=== PATIENT | male | born 1935 | race Caucasian/White ===

== ENCOUNTER → 2017-04-30 | Outpatient (CLI) | payer MEDICARE, MEDICAID ==
[~2017-04-30] MED LIST: ALB18R INH; ASPI-816 PO; ATOR10TA24 PO; BLOO-1061 MC; BLOO-1318 MC; BLOO-1337 MC; BUPR-136 PO; FLU IM; GUAI120L3 PO; LANC-1149 MC; LISI-362 PO; LISI20TA29 PO; LOSA50TA72 PO; METF-410 PO; OMEP-125 PO; OXYB5TAB80 PO; PNEU0.5D3 IM; SPIR1TAB26 PO; TAMS0.4C70 PO; VARE1TAB3 PO
== END ==
LOC: LAB 15:15
PROVIDERS: ATTEND Internal Medicine Endocrinology, Diabetes & Metabolism
DX: R94.6 Abnormal results of thyroid function studies (principal)
CPT/HCPCS: 36415; 84439; 84443; 84481

== ENCOUNTER → 2017-05-17 | Outpatient (CLI) | payer MEDICARE, MEDICAID ==
[2017-05-17 11:47] LABS: PLATELET COUNT, AUTOMATED 124 K/uL (150-450)
== END ==
LOC: LAB 11:21
PROVIDERS: ATTEND Nurse Practitioner Primary Care
DX: I10 Essential (primary) hypertension (principal); E78.00 Pure hypercholesterolemia, unspecified; E11.9 Type 2 diabetes mellitus without complications
CPT/HCPCS: 36415; 82040; 82247; 82310; 82374; 82435; 82465; 82565; 82947; 83036; 83718; 84075; 84132; 84155; 84295; 84450; 84460; 84478; 84520; 85025

== ENCOUNTER → 2017-06-16 | Outpatient (CLI) | payer MEDICARE, MEDICAID ==
[~2017-06-16] MED LIST changes: +ALBU8.5H IH; +UMEC1DIS INH
--- NOTE | 2017-06-16 11:41 | RADIOLOGY IMAGING REPORT ---
FACILITY: [facility] [place] PATIENT NAME: Sloan Odom : 1935 MR: [id number] V: [id number] EXAM DATE: ORDERING PHYSICIAN: JUSTIN MYERS TECHNOLOGIST: Location: [facility] [place] Patient: Sloan Odom : 1935 Visit/Account:[id number] Date of Sevice: 06/16/2017 SINGLE ORGAN HISTORY: Incomplete bladder emptying COMPARISON: None. FINDINGS: Bladder wall appears very irregular and trabeculated. Bilateral ureteral jets are present. Prostate gland appears enlarged and impinges upon the floor the urinary bladder and measures 6.5 x 6.2 x 7.4 cm.. The urinary bladder volume measured 165 mL. The post void residual was 96 mL. IMPRESSION: Bladder wall appears irregular and trabeculated Enlarged prostate gland Post void bladder residual 96 mL Report Dictated By: Barby Cross MD at 06/16/2017 11:36 AM Report E-Signed By: Barby Cross MD at 06/16/2017 11:38 AM WSN:[email or web address]
== END ==
LOC: RAD 02:28
DX: N40.1 Benign prostatic hyperplasia with lower urinary tract symptoms (principal); R39.14 Feeling of incomplete bladder emptying
CPT/HCPCS: 76705

== ENCOUNTER → 2017-06-22 | Outpatient (CLI) | payer MEDICARE | LOC: LAB 13:11 | DX: R97.20 Elevated prostate specific antigen [PSA] (principal) | CPT/HCPCS: 36415; 82310; 82374; 82435; 82565; 82947; 84132; 84153; 84295; 84520; 85027 ==

== ENCOUNTER 2017-06-28 19:35 | Emergency (ER) | payer MEDICAID, MEDICARE ==
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
--- NOTE | 2017-06-28 20:49 | RADIOLOGY IMAGING REPORT ---
FACILITY: [facility] PATIENT NAME: Sloan Odom : 1935 MR: [id number] V: [id number] EXAM DATE: ORDERING PHYSICIAN: SHERLY BLOOM TECHNOLOGIST: Location: [facility] Patient: Sloan Odom : 1935 Visit/Account:[id number] Date of Sevice: 06/28/2017 EXAMINATION: CT Head without intravenous contrast HISTORY: Headache. Confusion. TECHNIQUE: Axial images were obtained from the skull base to the vertex without intravenous contrast . Sagittal and coronal reformatted images are also submitted. One of the following dose optimization techniques was utilized in the performance of this exam: Autom ated exposure control; adjustment of the mA and/or kV according to the patient's size; or use of an i terative reconstruction technique. Specific details can be referenced in the facility's radiology C T exam operational policy. COMPARISON: None. FINDINGS: Brain volume: Mild generalized volume loss. Ventricles: Negative. Acute ischemic changes: None. Hemorrhage: None. Masses / edema: None. Cagle-white: Negative. White matter: Moderate to severe chronic microvascular ischemic changes. Vessels: Negative. Extra-axial: Negative. Calvarium / skull base: Negative. Visualized sinuses / orbits: Mild mucosal thickening in the paranasal sinuses. Bilateral TMJ arthrit is. IMPRESSION: 1. No acute intracranial abnormality. 2. Mild brain parenchymal volume loss. 3. Moderate to severe chronic white matter changes, nonspecific but most likely representing chronic microvascular ischemia. 4. Mild mucosal thickening in the paranasal sinuses. Report Dictated By: Chao Batista MD at 06/28/2017 8:36 PM Report E-Signed By: Chao Batista MD at 06/28/2017 8:44 PM WSN:[id number]
--- NOTE | 2017-06-28 20:50 | RADIOLOGY IMAGING REPORT ---
FACILITY: [facility] [place] PATIENT NAME: Sloan Odom : 1935 MR: [id number] V: [id number] EXAM DATE: ORDERING PHYSICIAN: SHERLY BLOOM TECHNOLOGIST: Location: [facility] Patient: Sloan Odom : 1935 Visit/Account:[id number] Date of Sevice: 06/28/2017 CHEST PA AND LAT HISTORY: Confusion. Dizziness. COMPARISON: 08/02/2014. FINDINGS: PA and lateral views of the chest are submitted. Lines/tubes: None. Lungs/pleura: Negative. Heart: Negative. Mediastinum: Negative. Bony structures/body wall: Degenerative changes in the spine. No acute osseous findings. IMPRESSION: No acute cardiopulmonary process. Report Dictated By: Chao Batista MD at 06/28/2017 8:46 PM Report E-Signed By: Chao Batista MD at 06/28/2017 8:47 PM WSN:[id number]
[2017-06-28 20:55] LABS: PLATELET COUNT, AUTOMATED 120 K/uL (150-450)
[2017-06-28] MEDS ORDERED: GADOBENATE 529MG/1ML 15ML VIAL IVP ONE (21:07)
--- NOTE | 2017-06-28 21:53 | RADIOLOGY IMAGING REPORT ---
FACILITY: [facility] [place] PATIENT NAME: Sloan Odom : 1935 MR: [id number] V: [id number] EXAM DATE: ORDERING PHYSICIAN: SHERLY BLOOM TECHNOLOGIST: Location: [facility] Patient: Sloan Odom : 1935 Visit/Account:[id number] Date of Sevice: 06/28/2017 EXAMINATION: MRI Brain without intravenous contrast MRI Brain with intravenous contrast HISTORY: Confusion. Left arm weakness and numbness. COMPARISON: Noncontrast head CT from same date. [facility] protocol MRI dated 08/27/2016. TECHNIQUE: Multi-planar, multi-sequence brain MRI was performed before and after IV gadolinium. CONTRAST: 15 mL of IV MultiHance FINDINGS: Brain volume: Mild generalized volume loss. Sagittal midline structures: Negative. Ventricles: Negative. Acute ischemic changes: None. Hemorrhage: None. Masses / edema: None. Enhancement: Negative. Cagle-white: Negative. White matter: Patchy and confluent T2/FLAIR hyperintensities in the deep white matter bilaterally. Vessels: Negative. Extra-axial: Negative. Calvarium / scalp: Negative. Skull base: Negative. Visualized sinuses / orbits: Mild mucosal thickening in the paranasal sinuses. Visualized upper neck: Negative. IMPRESSION: 1. No acute intracranial abnormality or mass. 2. Moderate to severe chronic white matter changes, nonspecific but most likely representing chronic microvascular ischemia. 3. Mild brain parenchymal volume loss. 4. Mild mucosal thickening in the paranasal sinuses. Report Dictated By: Chao Batista MD at 06/28/2017 9:42 PM Report E-Signed By: Chao Batista MD at 06/28/2017 9:48 PM WSN:[id number]
[2017-06-28 22:00] VITALS: BP 177/105
--- NOTE | 2017-06-29 08:31 | EKG ---
FACILITY: [facility] [place] PATIENT NAME: MIKE CLARK : [id number] MR: [id number] V: [id number] EXAM DATE: ORDERING PHYSICIAN: SHERLY BLOOM TECHNOLOGIST: THERESA Test Reason : AMS Blood Pressure : / mmHG Vent. Rate : 076 BPM Atrial Rate : 076 BPM P-R Int : 140 ms QRS Dur : 090 ms QT Int : 406 ms P-R-T Axes : 059 025 044 degrees QTc Int : 456 ms Normal sinus rhythm Query left atrial enlargement No previous ECGs available Confirmed by ARTUR HERNANDEZ ([id number]) on 06/29/2017 10:20:26 AM Referred By: Confirmed By:ARTUR HERNANDEZ
== END 2017-06-28 23:23 | disposition home or self-care (01) ==
LOC: ER 19:54
DX: R41.0 Disorientation, unspecified (principal); H53.8 Other visual disturbances; R09.02 Hypoxemia
CPT/HCPCS: 70450; 70553; 71046; 81001; 85025; 86140; 93005; 99284; A9577; 82040; 82247; 82310; 82374; 82435; 82565; 82947; 84075; 84132; 84155; 84295; 84450; 84460; 84520

== ENCOUNTER → 2017-07-15 | Outpatient (CLI) | payer MEDICARE, MEDICAID ==
[~2017-07-15] MED LIST changes: +LOSA100T67 PO
[2017-07-15 16:17] LABS: PLATELET COUNT, AUTOMATED 133 K/uL (150-450)
--- NOTE | 2017-07-15 17:28 | RADIOLOGY IMAGING REPORT ---
[facility] PATIENT NAME: Sloan Odom : 1935 MR: [id number] V: [id number] EXAM DATE: ORDERING PHYSICIAN: LORA REAL TECHNOLOGIST: Location: [facility] [place] Patient: Sloan Odom : 1935 Visit/Account:[id number] Date of Sevice: 07/15/2017 CAROTID HISTORY: balance problem, microischemic changes COMPARISON: None. FINDINGS: Grayscale, duplex and color Doppler interrogation of the extracranial carotid and vertebral arteries was performed bilateral. On the right, peak systolic velocities within the common and internal carotid arteries are 98 and 76 cm/sec respectively. There is a small amount of plaque at the right carotid bulb extending into the proximal right internal carotid artery. Antegrade flow within the common, internal and external [place] tid arteries as well as vertebral artery. ICA/CCA ratio 1. On the left, peak systolic velocities within the common and internal carotid arteries are 94 and 83 c m/sec respectively. There is a small amount of plaque at the left carotid bulb extending into the pr oximal left internal carotid artery. Antegrade flow within the common, internal and external carotid arteries as well as vertebral artery. ICA/CCA ratio 1 . Incidentally noted bilateral thyroid nodules. These are not completely evaluated although the pat ient did receive a thyroid ultrasound October 23, 2016 which did discuss bilateral nodules IMPRESSION: Small amount of plaque at the carotid bulbs extending into the internal carotid arteries bilaterally although no hemodynamically significant lesions identified by velocity criteria Incidental bilateral thyroid nodules Velocity criteria are extrapolated from diameter data as defined by the Society of Radiologists in Ul trasound Consensus Conference Radiology 2003; 229;340-346 Report Dictated By: Barby Cross MD at 07/15/2017 5:20 PM Report E-Signed By: Barby Cross MD at 07/15/2017 5:23 PM WSN:[email or web address]
== END ==
LOC: LAB 15:55
PROVIDERS: ATTEND Nurse Practitioner Family
DX: R41.0 Disorientation, unspecified (principal); H53.9 Unspecified visual disturbance; R26.89 Other abnormalities of gait and mobility
CPT/HCPCS: 36415; 82040; 82247; 82310; 82374; 82435; 82565; 82668; 82947; 84075; 84132; 84155; 84295; 84450; 84460; 84520; 85025; 85651; 86140; 93880

== ENCOUNTER → 2017-08-09 | Outpatient (CLI) | payer MEDICARE, MEDICAID ==
[~2017-08-09] MED LIST changes: -ASPI-816 PO; +ASPI-870 PO; +ESCI5TAB3 PO
== END ==
LOC: RESP 06:41
PROVIDERS: ATTEND Family Medicine
DX: J98.4 Other disorders of lung (principal)
CPT/HCPCS: 94010

== ENCOUNTER → 2017-09-06 | Outpatient (CLI) | payer MEDICARE, MEDICAID ==
[~2017-09-06] MED LIST changes: -METF-410 PO; +METF-411 PO
[2017-09-06 16:56] LABS: PLATELET COUNT, AUTOMATED 153 K/uL (150-450)
== END ==
LOC: LAB 16:38
PROVIDERS: ATTEND Family Medicine
DX: E53.8 Deficiency of other specified B group vitamins (principal); E55.9 Vitamin D deficiency, unspecified; I10 Essential (primary) hypertension
CPT/HCPCS: 36415; 82040; 82247; 82306; 82310; 82374; 82435; 82565; 82607; 82947; 84075; 84132; 84155; 84295; 84450; 84460; 84520; 85025

== ENCOUNTER → 2017-09-14 | Outpatient (CLI) | payer MEDICARE ==
--- NOTE | 2017-09-14 15:59 | RADIOLOGY IMAGING REPORT ---
FACILITY: [facility] [place] PATIENT NAME: Sloan Odom : 1935 MR: [id number] V: [id number] EXAM DATE: ORDERING PHYSICIAN: PAUL BEJARANO TECHNOLOGIST: Location: [facility] [place] Patient: Sloan Odom : 1935 Visit/Account:[id number] Date of Sevice: 09/14/2017 Exam type: GROIN ULTRASOUND History: Right inguinal hernia Comparison: None. Findings: Multiple sonographic images of the right inguinal region were submitted performed both with and witho ut Valsalva maneuver. There did appear to be a small loop of bowel within the right inguinal canal l ikely related to a hernia IMPRESSION: 1. There appear to be a small loop of bowel within the right inguinal canal likely related to a emily ia. Report Dictated By: Barby Cross MD at 09/14/2017 3:54 PM Report E-Signed By: Barby Cross MD at 09/14/2017 3:56 PM WSN:[email or web address]
== END ==
LOC: US 02:15
PROVIDERS: ATTEND Family Medicine
DX: K40.30 Unilateral inguinal hernia, with obstruction, without gangrene, not specified as recurrent (principal)
CPT/HCPCS: 76705

== ENCOUNTER → 2017-11-01 | Outpatient (CLI) | payer MEDICARE, MEDICAID ==
[~2017-11-01] MED LIST changes: +OXYGENHOME INH
== END ==
LOC: LAB 16:34
PROVIDERS: ATTEND Family Medicine
DX: E05.90 Thyrotoxicosis, unspecified without thyrotoxic crisis or storm (principal)
CPT/HCPCS: 36415; 84439; 84443; 84481

== ENCOUNTER 2017-11-12 15:10 | Outpatient (RCR) | payer MEDICARE, MEDICAID ==
--- NOTE | 2017-09-15 13:09 | PT INITIAL EVALUATION ---
MEDICAL DIAGNOSIS: Balance Disorder TREATMENT DIAGNOSIS: Abnormality of Gait, Balance DATE OF ONSET: 09/14/17 SUBJECTIVE: Sloan is a 82 year-old male presenting to physical therapy following a prolonged history of decreased balance with recent increase. Pt reports that he has been having more troubles walking lately and last week fell three times. Pt denies any injury or head impact with these falls, but would like to be less "wobbly". Pt reports problems standing in the shower as well as ambulating stairs. Additionally, pt reports R anterior hip pain that started recently. Pt has a history of inguinal hernia in this location and recently had it US but has not received results. Pt mentions that it hurts more with prolonged standing and walking . REHAB PROBLEM LIST: Decreased Strength Decreased Endurance Decreased Balance Decreased Function Decreased ADL's Decreased Mobility Decreased Gait PREVIOUS MEDICAL HISTORY: See EMR OBJECTIVE: ROM: UE and LE ROM WFL Strength: LE MMT: Hip: flexion: B 4-/5, Ext: B 3+/5, Abd: B 3+/5, Add: B 4-/5. Knee: Ext: B 4-/5, flexion: B 4/5. Ankle: DF: L 4+/5, R 4-/5, PF: L 3+/5, R 4/ 5. Pt has no pain with resisted hip movement. Gait: Pt ambulates with decreased foot clearance B and occasional shuffling. Functional Gait Assessment (FGA): Balance: 4 Stage Balance Test: Tandem: R 11 sec, L 30 sec, SLS: B 2 sec. Other Objective Findings: HR: 83, O2 Sat: 93 (Pt reports that he is supposed to be on 2 L of oxygen but doesn't wear it typically, BP: 165/90 (Pt reports that his BP is typically high and is being managed with medications) ASSESSMENT: Pt shows signs and symptoms consistent with abnormality of gait and decreased balance as outlined by the impairments listed above. Physical therapy is indicated for this patient to improve functional mobility and ability to perform ADL's as well as decrease fall risk. Pt's hip pain was not assessed at this time secondary to likely diagnosis of inguinal hernia return, if pain persists it will be later assessed following imaging results. Short Term Goals In 3 weeks pt will increase 4 Stage Balance to SLS B >15 seconds for improved static stance with ADLs such as showering or cooking. In 6 weeks pt will increase strength as tested by MMT to >4/5 in all major muscle groups for increased stability with ADLs. In 6 weeks pt will improve FGA score to >21 for improved function and safety with mobility and performing ADL's. Patient's Goals Improve balance and stability, decrease fall risk. PLAN: Patient to be seen for Strengthening/condition Ice/Heat Range of Motion Spinal Stabilization Ultrasound Stretching Iontophoresis Neuromuscular Re-ed Closed Chain Program Electrical Stim Posture/Body mechanics Gait Trg/Balance Trg Biofeedback Home Exercise Program Mech./Manual Traction Therapeutic Activities Pelvic Floor 2x/Week for 6 Weeks If you have any questions, comments, or concerns about this report or plan, please contact me at . Thank you, Carolynn Landrum, PT, DPT, CLT MTDD
--- NOTE | 2017-10-01 17:08 | SPEECH INITIAL EVALUATION ---
INITIAL SPEECH THERAPY EVALUATION REPORT Cognitive Communication Assessment Patient Name: Sloan Odom Date of Evaluation: 10/01/2017 Patient : 1935 Clinician: Renata Lauren M.S., [facility] DEVELOPER JAV[employer] HTML CSS Martha Martinez B.A., [facility] Treatment Dx: Mild cognitive-linguistic deficits BACKGROUND The patient is an 82 year old male experiencing articulation deficits. The patient reports mis-articulation of words during conversational speech and indicated some difficulty with word finding. The Pt reported completing most IADLs (laundry, bills, working at the store) himself, he did indicate difficulty remembering to take pills. Pt experiences sialorrhea and reported no sensory awareness. Pt uses a nasal cannula for oxygen day/night. Pt reported a decrease in cognitive abilities over the past 4-5 years with no sudden changes or loss of abilities. 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 SPEECH: Articulation of speech sounds at word, sentence, and conversational level is impacted by sialorrhea and lingual and labial weakness. Distorted sounds include /s and s-blends/ and bilabial sounds. The Pt demonstrated decreased intelligibility with multisyllabic words. VOICE: Wet/gurgly quality with decreased loudness with longer passages. DYSPHAGIA: Patient reported some episodes of coughing and choking with food and liquid and indicated a sticking feeling in the lower esophagus. WORD FINDING: When presented with confrontational naming tasks, the Pt identified 16/20 pictures indep. The Pt reports some difficulty when naming specific items. SUMMARY The patient presents with lingual and labial weakness that decreases overall speech intelligibility. Sialorrhea and a lack of sensory awareness may be impacting overall speech production and contributing to the wet/gurgly quality of his voice. The Pt presents with s/s of dysphagia (coughing, choking, wet vocal quality) indicating further swallow evaluation is needed. Pt presented with a mild decline over the past few years in cognitive functioning related to word finding and indicated need to better manage medication. Further cognitive evaluation is needed. RECOMMENDATIONS Cognitive evaluation Swallow evaluation 1. ST 2x/12wk to address articulation, cognitive functioning concerns and to monitor swallow function PROGNOSIS: Good. Pt seems motivated to address above concerns. PLAN OF CARE Short Term Goals 1. The Pt will perform speaking tasks at the word, phrase and conversational level with accurate articulation with 85% accuracy independently. 2. The patient will perform an oral motor exercise program to address oral weakness 3. The patient will perform executive function (ie. thought organization, planning, problem solving) and word finding tasks related to IADLs with min assist and 90% accuracy. Long-Term Goals 1. The patient will demonstrate improved speech intelligibility in multiple conversational settings. Thank you for this referral. Please call [phone] Renata Lauren M.S., [facility] DEVELOPER JAV[employer]CRIPT HTML CSS Martha Martinez B.A., [facility] [*] [facility]
--- NOTE | 2017-10-04 16:31 | SLP PLAN OF CARE ---
SPEECH THERAPY PLAN OF CARE UPDATE Patient Name: Sloan Odom Date of Report: 10/04/2017 Patient : 1935 Clinician: Renata Lauren M.S., [facility] PROC[employer] Treatment Dx: Mild cognitive-linguistic deficits BACKGROUND Mr. Sloan Odom was initially evaluated on 10/01/2017 following referral for reports of articulation deficits and sialorrhea. Majority of evaluation time was spent analyzing reported deficits in the area of articulation and word finding deficits. However, cognitive linguistic impairments became evident throughout evaluation procedures. Pt reported a gradual decrease in cognitive abilities over the past 4-5 years, but with no sudden changes or loss of abilities. Pt reported difficulty remembering to take medications consistently, exhibited delayed processing speed in response to interview questions, required multiple repetitions of task instructions, and demonstrated some evidence of impaired judgment as evidenced by inappropriate O2 management and continuation of driving against physician recommendations. Therefore, it appeared appropriate to initiate a formal cognitive linguistic evaluation during initial treatment encounter. The Cognitive Linguistic Quick Test (CLQT) was administered to assess the status of the following five cognitive domains: attention, memory, language, executive functions, and visuospatial skills. This test helps to identify relative strengths and weakness in these five areas. RESULTS of CLQT Severity Attention: mild deficit : 137/215 (WNL =180-215) Memory: mild deficit: 121/154 (UWU=049-126) Executive Functions: WFL 22/40 (WNL= 24-40) Language: mild 27/37 (WNL=29-37) Visuospatial Skills: mild 59/105 (WNL=82-105) Composite Severity Rating: Mild Cognitive deficits 3.4/4.0 (WNL=3.5-4.0) Although only mild deficits were noted during formal assessment procedures, concerns re: safe decision making and ability to sequence multi-level instructions persist. Pt may exhibit difficulties w/ the following activities: - product management analyst - Assembling tax records, business affairs, etc - Correctly managing portable oxygen tank - Remembering to take medications correctly - Remembering appointments UPDATED PLAN OF CARE Short Term Goals 1. The Pt will perform speaking tasks at the word, phrase and conversational level with accurate articulation with 85% accuracy independently. 2. The patient will perform an oral motor exercise program to address oral weakness. 3. The patient will execute multi-level instructions for higher-level cognitive communicative tasks (e.g, organization, planning, med management, oxygen management) with min assist and 90% accuracy. Long-Term Goals 1. The patient will demonstrate improved speech intelligibility in multiple conversational settings. 2. The patient will safely participate in IADL tasks with independent use of trained internal and external cognitive strategies. RECOMMENDATIONS Continue to recommend completion of formal swallow evaluation due to observation of sialorrhea, gurgly vocal quality, and Mr. Calloway reports of coughing episodes during PO intake. Additionally continue recommend ST 2X/ 12wks to address cognitive linguistic deficits, motor speech impairments, and swallow function. PROGNOSIS: Good. Pt seems motivated to address above concerns. Thank you for this referral. Please call [phone] Renata Lauren M.S., [employer]LL PROCESSOR [*] TONYA
--- NOTE | 2017-10-07 11:14 | PT PLAN OF CARE ---
Physician: Ele Anderson MD Patient is being seen: 2x/week Therapist: Parker Agosto, PT, DPT Medical Diagnosis: Balance Disorder Treatment Diagnosis: Abnormality of Gait, Balance Date of Onset: 09/14/17 Date of Initial Evaluation: 09/14/17 Date patient was last seen: 10/06/17 Number of treatments: 10 Number of cancellations/No shows: 1 INTERVENTIONS: Strengthening/condition Ice/Heat Range of Motion Spinal Stabilization Ultrasound Stretching Iontophoresis Neuromuscular Re-ed Closed Chain Program Electrical Stim Posture/Body mechanics Gait Trg/Balance Trg Biofeedback Home Exercise Program Mech./Manual Traction Therapeutic Activities Pelvic Floor GOALS: In 3 weeks pt will increase 4 Stage Balance to SLS B >15 seconds for improved static stance with ADLs such as showering or cooking. Not Met In 6 weeks pt will increase strength as tested by MMT to >4/5 in all major muscle groups for increased stability with ADLs. Not Met In 6 weeks pt will improve FGA score to >21 for improved function and safety with mobility and performing ADL's. MET PATIENT'S GOAL: Improve balance and stability, decrease fall risk. Status of Patient's Goals: Progressing Patient Compliance: Good Prognosis: Fair Reasons for continuing therapy: This is a progress note for Sloan Odom. He has demonstrated significant improvements with his functional gait assessment from baseline () to . He demonstrated insignificant improvements with his 4 stage balance test. However, he has been coming to physical therapy with his O2 donned, which has improved his alertness and less cloudiness with recall. 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 He demonstrated improvements with significant improvements more in his R LE as compared to his L LE. Physical therapy is indicated to continue to further improve balance, strength, coordination, and return closer to prior level of function. Posture: ROM: UE and LE ROM WFL Strength: LE MMT: Hip: flexion: B 4-/5, Ext: B 3+/5, Abd: B 3+/5, Add: B 4-/5. Knee: Ext: B 4-/5, flexion: B 4/5. Ankle: DF: L 4+/5, R 4-/5, PF: L 3+/5, R 4/ 5. Pt has no pain with resisted hip movement. Special Tests: Functional Gait Assessment: . 4 stage balance: tandem: R 11 sec, L 31 sec. stand on one foot: B 1 sec If you have any questions, please contact me at [phone]. Thank you, Parker Agosto, PT, DPT YOANDYD
--- NOTE | 2017-11-09 12:03 | PT PLAN OF CARE ---
Physician: Ele Anderson MD Patient is being seen: 2-3x/Week Therapist: Carolynn Landrum, PT, DPT, CLT Medical Diagnosis: Balance Disorder Treatment Diagnosis: Abnormality of Gait, Balance Date of Onset: 09/14/17 Date of Initial Evaluation: 09/14/17 Date patient was last seen: 11/08/17 Number of treatments: 20 Number of cancellations/No shows: 2 INTERVENTIONS: Strengthening/condition Ice/Heat Range of Motion Spinal Stabilization Ultrasound Stretching Iontophoresis Neuromuscular Re-ed Closed Chain Program Electrical Stim Posture/Body mechanics Gait Trg/Balance Trg Biofeedback Home Exercise Program Mech./Manual Traction Therapeutic Activities Pelvic Floor GOALS: In 3 weeks pt will increase 4 Stage Balance to SLS B >15 seconds for improved static stance with ADLs such as showering or cooking. Not Met In 6 weeks pt will increase strength as tested by MMT to >4/5 in all major muscle groups for increased stability with ADLs. MET In 6 weeks pt will improve FGA score to >21 for improved function and safety with mobility and performing ADL's. MET and then regressed PATIENT'S GOAL: Improve balance and stability, decrease fall risk. Status of Patient's Goals: Progressing Patient Compliance: Good Prognosis: Fair Reasons for continuing therapy: Sloan shows increased progress towards functional strength and improved endurance with ambulation. However, pt shows inconsistent progress towards stability and balance. PT has worked with manager social services to allow Sloan access to a portable oxygen concentrator to increase pt use. However, pt has not yet received concentrator and remains very inconsistent with oxygen use accounting for the constant fluctuation in cognitive and physical performance. Further PT to focus more on balance and stability in static stance as well as in dynamic gait. Posture: ROM: UE and LE ROM WFL Strength: LE MMT: Hip: flexion: L 5-/5, R 5/5, Ext: L 5-/5, R 5/5, Abd/Add: 5/ 5. Knee: Ext: B 5/5, flexion: B 5/5. Ankle: DF: B 4+/5, PF: B 4/5. Pt has no pain with resisted hip movement. Special Tests: Functional Gait Assessment: . 4 stage balance: tandem: R 11 sec, L 31 sec. stand on one foot: B 2 sec If you have any questions, please contact me at [phone]. Thank you, Carolynn Landrum, PT, DPT, CLT MTDD
--- NOTE | 2017-11-19 10:16 | SLP DISCHARGE NOTE ---
SPEECH THERAPY DISCHARGE SUMMARY Physician: Ele Anderson MD Clinician: Renata Lauren M.S., [facility]-ASSOCIATE TRAINER Patient Name: Sloan Odom Date of Report: 11/19/2017 Patient : 1935 Mr. Sloan Odom has attended a total of 6 treatment sessions since his initial evaluation on 10/01/2017. He presented to outpatient speech services following referral for reports of articulation deficits and sialorrhea. His speech output was characterized by consonant imprecision, decreased rate of speech, lingual and labial weakness, and suspected dysarthria of unknown cause. Cognitive linguistic impairments also became evident throughout evaluation procedures. During his evaluation, Mr. Odom reported a gradual decrease in cognitive abilities throughout the past 4-5 years. This included difficulty remembering to take medications on time. Mr. Odom exhibited delayed processing speed in response to interview questions, required multiple repetitions of task instructions, and demonstrated some evidence of impaired judgment as evidenced by inappropriate O2 management and continuation of driving against physician recommendations. Mr. Odom worked on the following short-term goals throughout his treatment plan: 1. The Pt will perform speaking tasks at the word, phrase and conversational level with accurate articulation with 85% accuracy independently. Met. 90% intelligibility noted at the conversational level with use of trained strategies (e.g., over-articulation, increased loudness). However, Mr. Odom continued to exhibit decreased speaking rate, variable consonant imprecision, and sialorrhea. Worsening severity appeared to correlate with increased fatigue. 2. The patient will perform an oral motor exercise program to address oral weakness. Not met. Oral motor exercises insufficiently targeted. Exercise program included activities to improve labial closure, [id number], and strength. Lingual exercises were not successfully initiated. Repeatedly discussed recommendations to follow-up with neurologist due to observation of difficulty with salivary management, oromotor weakness, and articulatory deterioration. Mr. Odom was somewhat resistant. 3. The patient will execute multi-level instructions for higher-level cognitive communicative tasks (e.g, organization, planning, med management, oxygen management) with min assist and 90% accuracy. Not met. Mr. Odom demonstrated highly variable performance accuracy during completion of higher-level cognitive communicative tasks. Performance appeared to decline when Mr. Odom presented to treatment sessions without portable oxygen tank. Saturation levels were often measured in the mid-80s with immediate improvement to the mid-90s following provision of O2 via nasal cannula. On average, Mr. Odom required moderate cueing for accurate completion of higher-level cognitive communicative tasks. These included execution of multi-level steps for completion of verbal safety scenarios, prioritization and planning activities, medication management, and prospective memory activities. Long-Term Goals 1. The patient will demonstrate improved speech intelligibility in multiple conversational settings. Not met. 2. The patient will safely participate in IADL tasks with independent use of trained internal and external cognitive strategies. Not met. SUMMARY Variable progress was observed throughout Mr. Calloway participation in skilled speech services. Improvements were noted in executive function skills when provided with access to external compensations to support organization, memory, and planning. Speech intelligibility successfully improved with consistent use of trained strategies (e.g., over articulation, increased loudness, etc) during participation in conversational settings. Unable to provide adequate opportunities for use of speech strategies in diverse communication settings. Mr. Odom has self-discharged from speech services for medical reasons at this time. He reports willingness to re-initiate interventions as able in the future. Thank you for referring this patient to [facility], Speech- Language Pathology. Please call [phone] to contact the ASSOCIATE TRAINER with questions or concerns. Respectfully, Renata Lauren M.S., [facility]-ASSOCIATE TRAINER Physician Signature Date [*] MTDD
== END 2017-11-12 18:00 | disposition home or self-care (01) ==
LOC: PT 15:10
PROVIDERS: ATTEND Family Medicine
DX: R26.89 Other abnormalities of gait and mobility (principal); R29.6 Repeated falls; K40.90 Unilateral inguinal hernia, without obstruction or gangrene, not specified as recurrent; Z99.81 Dependence on supplemental oxygen
CPT/HCPCS: 92523; 97161

== ENCOUNTER → 2017-11-12 | Outpatient (CLI) | payer MEDICARE, MEDICAID ==
[~2017-11-12] MED LIST changes: +ASPI-1471 PO; +VIT-7 PO; +[UNRECOGNIZED DRUG - OTHER]
--- NOTE | 2017-11-12 15:07 | RADIOLOGY IMAGING REPORT ---
FACILITY: [facility] [place] PATIENT NAME: Sloan Odom : 1935 MR: [id number] V: [id number] EXAM DATE: ORDERING PHYSICIAN: PAUL BEJARANO TECHNOLOGIST: Location: [facility] [place] Patient: Sloan Odom : 1935 Visit/Account:[id number] Date of Sevice: 11/12/2017 CHEST W/O CONTRAST History: F/U Pulmonary Nodules TECHNIQUE: Contiguous axial images were performed through the chest to the level of the adrenal gla nds. No IV contrast was administered. Coronal and sagittal reformatting was also performed. Dose Lowe ring Technique One of the following dose optimization techniques was utilized in the performance of this exam: Autom ated exposure control; adjustment of the mA and/or kV according to the patient's size; or use of an i terative reconstruction technique. Specific details can be referenced in the facility's radiology C T exam operational policy. COMPARISON STUDIES: September 18, 2016. Lungs / Pleura: Mild emphysematous changes are again seen throughout the lungs. The previously noted pulmonary nodule in the lateral aspect of the left lower lobe has now increased in size measuring 9 x 7 mm as opposed to 5 to 6 mm previously. There is now suggestion of a small am ount of linear stranding extending towards the lateral pleural margin.. There may be a subtle elin of calcium within this nodule although cannot be determined with complete certainty. No other pulmon jaky nodules identified there is no evidence of pleural effusions There are secretions are present within the trachea extending into both main bronchi Mediastinum/nodes: Hypoattenuating left thyroid nodule appears well totally unchanged Heart and vessels: Mild to moderate arthroscopic calcifications are seen in the thoracic aorta and b ranch vessels including the coronary arteries Musculoskeletal / Body wall: Moderate spondylotic changes of the thoracic spine Upper abdomen: Small hiatal hernia IMPRESSION: Previously noted pulmonary nodule lateral aspect left lower lobe has now increased in size measuring 9 x 7 mm as opposed to 5 to 6 mm previously. There is no suggestion of a small amount of linear stra nding extending towards the lateral pleural margin there may be a subtle elin of calcium within this nodule although cannot be determined with complete certainty. Given the interval increase in size h owever in the patient's prior smoking history a PET/CT may be helpful for further evaluation Incidentally noted are retained secretions within the trachea extending into both main bronchi Additional chronic findings as described Report Dictated By: Barby Cross MD at 11/12/2017 2:31 PM Report E-Signed By: Barby Cross MD at 11/12/2017 3:03 PM WSN:[id number]
== END ==
LOC: CT 00:53
PROVIDERS: ATTEND Family Medicine
DX: I25.10 Atherosclerotic heart disease of native coronary artery without angina pectoris (principal); E04.1 Nontoxic single thyroid nodule; R91.8 Other nonspecific abnormal finding of lung field
CPT/HCPCS: 71250

== ENCOUNTER 2017-11-24 14:58 | Emergency (ER) | payer MEDICARE, MEDICAID ==
--- NOTE | 2017-11-24 15:10 | ER Report ---
History and Physical Time Seen By MD: 15:00 HPI/ROS CHIEF COMPLAINT: Fall HISTORY OF PRESENT ILLNESS: 82-year-old male patient presents to emergency room with complaint of a fall. Patient [place] that [place] he tripped and fell down the stairs. Patient is unsure how many stairs he fell down. However when EMS arrived his checkbook was found to be at the top of the stairs while he was found at the bottom. Patient denies any loss of consciousness, he denies any headache, neck pain, back pain. He states he's not had any dizziness, nausea, vomiting. Patient states he is not taking any medication for this. REVIEW OF SYSTEMS: Respiratory: No cough, no dyspnea. Cardiovascular: No chest pain, no palpitations. Gastrointestinal: No vomiting, no abdominal pain. Musculoskeletal: No back pain. Allergies: Coded Allergies: No Known Drug Allergies (Unverified , 11/24/17) Home Meds Active Scripts Escitalopram Oxalate (ESCITALOPRAM OXALATE) 5 Mg Tablet, 1 TAB PO QDAY for 90 Days, #90 TAB 1 Refill Prov:PAUL BEJARANO MD 11/11/17 Losartan Potassium (LOSARTAN POTASSIUM) 100 Mg Tablet, 1 TAB PO QDAY for 90 Days , #90 TAB 3 Refills Prov:PAUL BEJARANO MD 10/14/17 Albuterol Sulfate 90 Mcg/Act (PROAIR HFA 90 MCG/ACT) 8.5 Gm Hfa.aer.ad, 2 PUFF IH Q4-6H, #1 INHALER 5 Refills Prov:PAUL BEJARANO MD 09/29/17 Umeclidinium Brm/Vilanterol Tr (Anoro Ellipta 62.5-25 Mcg INH) 1 Each Disk.w.dev , 1 INH INH DAILY, #1 INH 2 Refills Prov:LORA REAL APRN [employer] 05/28/17 Reported Medications [Wynn Oil] Unknown Strength No Conflict Check 11/04/17 Vit A,C & E/Lutein/Minerals (OCUVITE TABLET) 1 Each Tablet, 1 TAB PO DAILY 11/04/17 Omeprazole (OMEPRAZOLE) 20 Mg Capsule.dr, 1 CAP PO PRN, CAP 11/04/17 Aspirin (ASPIR 81) 81 Mg Tablet.dr, 1 TAB PO QDAY, TAB 7/19/18 Oxygen (OXYGEN) Inha, 2-3 L INH, L 10/19/17 Past Medical/Surgical History Patient has a past medical history of hypertension, COPD, reflux, 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 Patient has a surgical history of hernia repair, appendectomy, tonsillectomy. Reviewed Nurses Notes: Yes Smoking Status: Current: Every Day Smoker Hx Alcohol Use: Yes Constitutional Vital Sign - Last 24 Hours 11/24/17 11/24/17 11/24/17 11/24/17 14:58 15:08 15:13 15:18 Temp 99.3 Pulse 94 93 92 Resp 16 20 18 B/P (MAP) 164/96 164/96 (118) Pulse Ox 94 97 95 O2 Delivery Room Air 11/24/17 11/24/17 11/24/17 11/24/17 15:30 15:48 16:00 16:30 Pulse 82 Resp 18 B/P (MAP) ???/??? (1665) 157/89 (111) 159/87 (111) Pulse Ox 93 11/24/17 11/24/17 11/24/17 11/24/17 16:48 17:00 17:05 17:30 Pulse 80 89 Resp 19 19 B/P (MAP) 170/102 (124) 178/102 (127) Pulse Ox 96 98 11/24/17 17:35 Pulse 78 Resp 20 Pulse Ox 91 Physical Exam General Appearance: The patient is alert, has no immediate need for airway protection and no current signs of toxicity. Eyes: Pupils equal and round no injection. Respiratory: Chest is non tender, lungs are clear to auscultation. Cardiac: regular rate and rhythm Gastrointestinal: Abdomen is soft and non tender, no masses, bowel sounds normal. Musculoskeletal: Neck: Neck is unable to be assessed due to c-collar. Extremities have full range of motion and are non tender. Skin: No rashes or lesions. Patient has a 7 cm laceration to the back of his head, there is bleeding. DIFFERENTIAL DIAGNOSIS: After history and physical exam differential diagnosis was considered for laceration, intracranial hemorrhage, skull fracture, cervical spine fracture. Medical Decision Making Data Points Result Diagram: 11/24/17 1500 11/24/17 1500 Laboratory Hematology Test 11/24/17 15:00 11/24/17 16:59 Red Blood Count 5.03 M/uL (4.00-5.60) Mean Corpuscular Volume 99.7 fL (80.0-96.0) Mean Corpuscular Hemoglobin 34.2 pg (26.0-33.0) Mean Corpuscular Hemoglobin Concent 34.3 g/dL (32.0-36.0) Red Cell Distribution Width 13.8 % (11.5-14.5) Mean Platelet Volume 8.5 fL (7.2-11.1) Neutrophils (%) (Auto) 71.1 % (39.4-72.5) Lymphocytes (%) (Auto) 19.5 % (17.6-49.6) Monocytes (%) (Auto) 8.2 % (4.1-12.4) Eosinophils (%) (Auto) 0.5 % (0.4-6.7) Basophils (%) (Auto) 0.7 % (0.3-1.4) Nucleated RBC Relative Count (auto) 0.1 /100WBC Neutrophils # (Auto) 4.2 K/uL (2.0-7.4) Lymphocytes # (Auto) 1.2 K/uL (1.3-3.6) Monocytes # (Auto) 0.5 K/uL (0.3-1.0) Eosinophils # (Auto) 0.0 K/uL (0.0-0.5) Basophils # (Auto) 0.0 K/uL (0.0-0.1) Nucleated RBC Absolute Count (auto) 0.00 K/uL Prothrombin Time 14.4 seconds (12.0-14.4) Prothromb Time International Ratio 1.12 Activated Partial Thromboplast Time 25 seconds (23-35) Sodium Level 137 mmol/L (137-145) Potassium Level 3.9 mmol/L (3.5-5.0) Chloride Level 100 mmol/L (98-107) Carbon Dioxide Level 24 mmol/L (22-30) Blood Urea Nitrogen 19 mg/dl (9-21) Creatinine 1.00 mg/dl (0.66-1.25) Glomerular Filtration Rate Calc > 60.0 Random Glucose 149 mg/dl (75-110) Calcium Level 9.5 mg/dl (8.4-10.2) Total Bilirubin 0.7 mg/dl (0.2-1.3) Aspartate Amino Transf (AST/SGOT) 32 U/L (0-35) Alanine Aminotransferase (ALT/SGPT) 32 U/L (0-56) Alkaline Phosphatase 116 U/L (0-126) Troponin I < 0.012 ng/ml Total Protein 6.7 g/dl (6.3-8.2) Albumin 4.5 g/dl (3.5-5.0) Urine Color Yellow Urine Clarity Clear Urine pH 5.0 pH (4.8-9.5) Urine Specific Botkins 1.014 Urine Protein 30 mg/dL (NEGATIVE) Urine Glucose (UA) Negative mg/dL (NEGATIVE) Urine Ketones Trace mg/dL (NEGATIVE) Urine Blood Moderate (NEGATIVE) Urine Nitrite Negative (NEGATIVE) Urine Bilirubin Negative (NEGATIVE) Urine Urobilinogen 2.0 mg/dL (0.2-1.9) Urine Leukocyte Esterase Negative (NEGATIVE) Urine RBC 2 /HPF (0-2/HPF) Urine WBC 2 /HPF (0-5/HPF) Urine Squamous Epithelial Cells None /LPF (</=FEW) Urine Bacteria Negative /HPF (NONE-FEW) Urine Hyaline Casts Few /LPF (NONE-FEW) Urine Mucus Few /HPF (NONE-FEW) Chemistry Test 11/24/17 15:00 11/24/17 16:59 White Blood Count 5.9 k/uL (4.5-11.0) Red Blood Count 5.03 M/uL (4.00-5.60) Hemoglobin 17.2 g/dL (14.0-18.0) Hematocrit 50.2 % (42.0-52.0) Mean Corpuscular Volume 99.7 fL (80.0-96.0) Mean Corpuscular Hemoglobin 34.2 pg (26.0-33.0) Mean Corpuscular Hemoglobin Concent 34.3 g/dL (32.0-36.0) Red Cell Distribution Width 13.8 % (11.5-14.5) Platelet Count 170 K/uL (150-450) Mean Platelet Volume 8.5 fL (7.2-11.1) Neutrophils (%) (Auto) 71.1 % (39.4-72.5) Lymphocytes (%) (Auto) 19.5 % (17.6-49.6) Monocytes (%) (Auto) 8.2 % (4.1-12.4) Eosinophils (%) (Auto) 0.5 % (0.4-6.7) Basophils (%) (Auto) 0.7 % (0.3-1.4) Nucleated RBC Relative Count (auto) 0.1 /100WBC Neutrophils # (Auto) 4.2 K/uL (2.0-7.4) Lymphocytes # (Auto) 1.2 K/uL (1.3-3.6) Monocytes # (Auto) 0.5 K/uL (0.3-1.0) Eosinophils # (Auto) 0.0 K/uL (0.0-0.5) Basophils # (Auto) 0.0 K/uL (0.0-0.1) Nucleated RBC Absolute Count (auto) 0.00 K/uL Prothrombin Time 14.4 seconds (12.0-14.4) Prothromb Time International Ratio 1.12 Activated Partial Thromboplast Time 25 seconds (23-35) Glomerular Filtration Rate Calc > 60.0 Calcium Level 9.5 mg/dl (8.4-10.2) Total Bilirubin 0.7 mg/dl (0.2-1.3) Aspartate Amino Transf (AST/SGOT) 32 U/L (0-35) Alanine Aminotransferase (ALT/SGPT) 32 U/L (0-56) Alkaline Phosphatase 116 U/L (0-126) Troponin I < 0.012 ng/ml Total Protein 6.7 g/dl (6.3-8.2) Albumin 4.5 g/dl (3.5-5.0) Urine Color Yellow Urine Clarity Clear Urine pH 5.0 pH (4.8-9.5) Urine Specific Botkins 1.014 Urine Protein 30 mg/dL (NEGATIVE) Urine Glucose (UA) Negative mg/dL (NEGATIVE) Urine Ketones Trace mg/dL (NEGATIVE) Urine Blood Moderate (NEGATIVE) Urine Nitrite Negative (NEGATIVE) Urine Bilirubin Negative (NEGATIVE) Urine Urobilinogen 2.0 mg/dL (0.2-1.9) Urine Leukocyte Esterase Negative (NEGATIVE) Urine RBC 2 /HPF (0-2/HPF) Urine WBC 2 /HPF (0-5/HPF) Urine Squamous Epithelial Cells None /LPF (</=FEW) Urine Bacteria Negative /HPF (NONE-FEW) Urine Hyaline Casts Few /LPF (NONE-FEW) Urine Mucus Few /HPF (NONE-FEW) Coagulation Test 11/24/17 15:00 Prothrombin Time 14.4 seconds Prothromb Time International Ratio 1.12 Activated Partial Thromboplast Time 25 seconds Urinalysis Test 11/24/17 16:59 Urine Color Yellow Urine Clarity Clear Urine pH 5.0 pH (4.8-9.5) Urine Specific Botkins 1.014 Urine Protein 30 mg/dL (NEGATIVE) Urine Glucose (UA) Negative mg/dL (NEGATIVE) Urine Ketones Trace mg/dL (NEGATIVE) Urine Blood Moderate (NEGATIVE) Urine Nitrite Negative (NEGATIVE) Urine Bilirubin Negative (NEGATIVE) Urine Urobilinogen 2.0 mg/dL (0.2-1.9) Urine Leukocyte Esterase Negative (NEGATIVE) Urine RBC 2 /HPF (0-2/HPF) Urine WBC 2 /HPF (0-5/HPF) Urine Squamous Epithelial Cells None /LPF (</=FEW) Urine Bacteria Negative /HPF (NONE-FEW) Urine Hyaline Casts Few /LPF (NONE-FEW) Urine Mucus Few /HPF (NONE-FEW) EKG/Imaging Imaging EXAMINATION: CT Head without intravenous contrast CT Cervical spine without intravenous contrast HISTORY: Trauma. TECHNIQUE: Head: Axial images were obtained from the skull base to the vertex without intravenous contrast. Sagittal and coronal reformatted images are also submitted. Cervical spine: Axial images were obtained from the skull base through the upper thoracic spine without IV contrast administration. Coronal and sagittal reformatted images were obtained from the axial source data. One of the following dose optimization techniques was utilized in the performance of this exam: Automated exposure control; adjustment of the mA and/ or kV according to the patient's size; or use of an iterative reconstruction technique. Specific details can be referenced in the facility's radiology CT exam operational policy. COMPARISON: Noncontrast head CT and brain MRI dated 06/28/2017. Thyroid ultrasound dated 10/23/2016. FINDINGS: HEAD: Brain volume: Mild generalized volume loss. Ventricles: Stable ventricular size. Acute ischemic changes: None. Hemorrhage: None. Masses / edema: None. Cagle-white: Negative. White matter: Stable moderate to severe chronic microvascular ischemic changes. Vessels: Bilateral carotid siphon calcification. Normal density in the dural venous sinuses. Extra-axial: Negative. Calvarium / skull base: Mild posterior scalp contusion. No radiopaque foreign body or fracture. Bilateral TMJ osteoarthritis. Visualized sinuses / orbits: Mild to moderate mucosal thickening in the maxillary sinuses and ethmoid air cells. Rightward nasal septal deviation. CERVICAL SPINE: Alignment: Mild convex leftward curvature of the cervical spine and convex rightward curvature of the cervicothoracic junction. Cranio-cervical junction: Degenerative changes in the atlantodental joint. Otherwise negative. Vertebral bodies: Normal vertebral body height. Mild degenerative endplate changes at a few levels, most severe at C5-C6. Posterior elements: Multilevel facet hypertrophy. Hardware: None. Disc Spaces: Multilevel degenerative disc disease, most severe at C5-C6. Soft tissues: No prevertebral soft tissue swelling. Calcified plaque in the bilateral common carotid bifurcation. Visualized upper chest: Mild to moderate centrilobular emphysema. IMPRESSION: 1. Mild posterior scalp contusion. No radiopaque foreign body or fracture. No acute intracranial abnormality. Stable chronic changes in the brain. 2. No acute cervical spine fracture. Multilevel degenerative disc disease and facet hypertrophy. 3. Bilateral TMJ osteoarthritis. 4. Mild to moderate mucosal thickening in the maxillary sinuses and ethmoid air cells. Rightward nasal septal deviation. 5. Mild to moderate centrilobular emphysema in the lung apices. Report Dictated By: Chao Batista MD at 11/24/2017 3:52 PM Report E-Signed By: Chao Batista MD at 11/24/2017 4:03 PM ED Course/Re-evaluation ED Course Patient is admitted to exam room, history and physical were obtained. Differential diagnoses were considered. On examination patient has a large laceration to the back of his head, unable to examine his neck and due to c- collar. Patient had no tenderness to palpation to the chest, arms, legs, back. A CT scan of the head was done which was negative, CT scan of cervical spine was done which was also negative. A CBC, CMP, PT, PTT, EKG and troponin were done. EKG showed a normal sinus rhythm, troponin was negative, labs were completely unremarkable. The wound was anesthetized, cleaned and repaired as described below. We will go ahead and discharge patient home at this time. He is to follow-up with his primary care provider in 5-7 days to have the link removed. Patient may return to emergency room if condition worsens. Patient was having some oozing after the link were placed. We did dress that with a Telfa pad, 4 x 4's and Coban. He is to remove that tomorrow. If he has persistent oozing after that I would encourage him to redress his head. They're to monitor for any signs of increased intracranial pressure. They're to return to emergency room if any of those occur. Patient is verbalized understanding and agreement with plan. Procedure: Laceration repair. Verbal consent was obtained from the patient. The 7 cm laceration on the back of the head was anesthetized in the usual fashion. The wound was scrubbed, draped and explored to its base with a gloved finger. There were no deep structures involved. The wound was repaired with 3 subcuticular sutures using 4 -0 Vicryl material, 17 link. The wound repair was intermediate. The procedure was performed by myself. Decision to Disposition Date: Nov 24, 2017 Decision to Disposition Time: 17:51 Depart Departure Latest Vital Signs Vital Signs Date Time Temp Pulse Resp B/P (MAP) Pulse Ox O2 Delivery O2 Flow Rate FiO2 11/24/17 17:35 78 20 91 11/24/17 17:30 178/102 (127) 11/24/17 14:58 99.3 Room Air Impression: Primary Impression: Laceration Condition: Improved Disposition: HOME OR SELF-CARE Referrals: PAUL BEJARANO MD (PCP) Patient Instructions: Laceration (ED) Additional Instructions: Keep wound dry for 48 hours. Follow up with your primary care provider in the next 5-7 days to have link removed. Monitor for signs of infection; redness, swelling, heat, discharge, increasing pain or red streaking. Take Tylenol or Ibuprofen as needed for pain. Return to the ER with any concerns. You may remove the dressing tomorrow, if there is continual bleeding or oozing he may apply dressing again. Get plenty of rest. Limit activity by pain. Limit TV and computer time. Monitor for confusion, increased irritability, uncontrollable vomiting, worsening headache or difficulty to arouse. Return to the ER if those are to occur. Follow up with your primary care provider in the next week. JOSE LOPEZ Nov 24, 2017 15:10
--- NOTE | 2017-11-24 15:14 | EKG ---
[place] [facility] [place] NAME: MIKE CLARK : [id number] MR: [id number] V: [id number] EXAM DATE: ORDERING PHYSICIAN: JOSE LOPEZ TECHNOLOGIST: Test Reason : Blood Pressure : / mmHG Vent. Rate : 092 BPM Atrial Rate : 092 BPM P-R Int : 124 ms QRS Dur : 090 ms QT Int : 370 ms P-R-T Axes : 057 030 029 degrees QTc Int : 457 ms Normal sinus rhythm Normal ECG When compared with ECG of 28-JUN-2017 20:02, Criteria for Septal infarct are no longer present Confirmed by ZITA TURNER ([id number]) on 11/25/2017 7:47:03 AM Referred By: Confirmed By:ZITA TURNER
[2017-11-24 15:21] LABS: PLATELET COUNT, AUTOMATED 170 K/uL (150-450)
[2017-11-24 15:42] LABS: INR 1.12
--- NOTE | 2017-11-24 16:07 | RADIOLOGY IMAGING REPORT ---
FACILITY: [facility] - [place] PATIENT NAME: Sloan Odom : 1935 MR: [id number] V: [id number] EXAM DATE: ORDERING PHYSICIAN: JOSE LOPEZ TECHNOLOGIST: Location: [facility] Patient: Sloan Odom : 1935 Visit/Account:[id number] Date of Sevice: 11/24/2017 EXAMINATION: CT Head without intravenous contrast CT Cervical spine without intravenous contrast HISTORY: Trauma. TECHNIQUE: Head: Axial images were obtained from the skull base to the vertex without intravenous contrast. Sa gittal and coronal reformatted images are also submitted. Cervical spine: Axial images were obtained from the skull base through the upper thoracic spine with out IV contrast administration. Coronal and sagittal reformatted images were obtained from the axial source data. One of the following dose optimization techniques was utilized in the performance of this exam: Autom ated exposure control; adjustment of the mA and/or kV according to the patient's size; or use of an i terative reconstruction technique. Specific details can be referenced in the facility's radiology C T exam operational policy. COMPARISON: Noncontrast head CT and brain MRI dated 06/28/2017. Thyroid ultrasound dated 10/23/2016. FINDINGS: HEAD: Brain volume: Mild generalized volume loss. Ventricles: Stable ventricular size. Acute ischemic changes: None. Hemorrhage: None. Masses / edema: None. Cagle-white: Negative. White matter: Stable moderate to severe chronic microvascular ischemic changes. Vessels: Bilateral carotid siphon calcification. Normal density in the dural venous sinuses. Extra-axial: Negative. Calvarium / skull base: Mild posterior scalp contusion. No radiopaque foreign body or fracture. Bila teral TMJ osteoarthritis. Visualized sinuses / orbits: Mild to moderate mucosal thickening in the maxillary sinuses and ethmoi d air cells. Rightward nasal septal deviation. CERVICAL SPINE: Alignment: Mild convex leftward curvature of the cervical spine and convex rightward curvature of the cervicothoracic junction. Cranio-cervical junction: Degenerative changes in the atlantodental joint. Otherwise negative. Vertebral bodies: Normal vertebral body height. Mild degenerative endplate changes at a few levels, m ost severe at C5-C6. Posterior elements: Multilevel facet hypertrophy. Hardware: None. Disc Spaces: Multilevel degenerative disc disease, most severe at C5-C6. Soft tissues: No prevertebral soft tissue swelling. Calcified plaque in the bilateral common carotid bifurcation. Visualized upper chest: Mild to moderate centrilobular emphysema. IMPRESSION: 1. Mild posterior scalp contusion. No radiopaque foreign body or fracture. No acute intracranial abno rmality. Stable chronic changes in the brain. 2. No acute cervical spine fracture. Multilevel degenerative disc disease and facet hypertrophy. 3. Bilateral TMJ osteoarthritis. 4. Mild to moderate mucosal thickening in the maxillary sinuses and ethmoid air cells. Rightward nasa l septal deviation. 5. Mild to moderate centrilobular emphysema in the lung apices. Report Dictated By: Chao Batista MD at 11/24/2017 3:52 PM Report E-Signed By: Chao Batista MD at 11/24/2017 4:03 PM WSN:[id number]
--- NOTE | 2017-11-24 16:08 | RADIOLOGY IMAGING REPORT ---
FACILITY: [facility] PATIENT NAME: Sloan Odom : 1935 MR: [id number] V: [id number] EXAM DATE: ORDERING PHYSICIAN: JOSE LOPEZ TECHNOLOGIST: [facility] Patient: Sloan Odom : 1935 Visit/Account:[id number] Date of Sevice: 11/24/2017 EXAMINATION: CT Head without intravenous contrast CT Cervical spine without intravenous contrast HISTORY: Trauma. TECHNIQUE: Head: Axial images were obtained from the skull base to the vertex without intravenous contrast. Sa gittal and coronal reformatted images are also submitted. Cervical spine: Axial images were obtained from the skull base through the upper thoracic spine with out IV contrast administration. Coronal and sagittal reformatted images were obtained from the axial source data. One of the following dose optimization techniques was utilized in the performance of this exam: Autom ated exposure control; adjustment of the mA and/or kV according to the patient's size; or use of an i terative reconstruction technique. Specific details can be referenced in the facility's radiology C T exam operational policy. COMPARISON: Noncontrast head CT and brain MRI dated 06/28/2017. Thyroid ultrasound dated 10/23/2016. FINDINGS: HEAD: Brain volume: Mild generalized volume loss. Ventricles: Stable ventricular size. Acute ischemic changes: None. Hemorrhage: None. Masses / edema: None. Cagle-white: Negative. White matter: Stable moderate to severe chronic microvascular ischemic changes. Vessels: Bilateral carotid siphon calcification. Normal density in the dural venous sinuses. Extra-axial: Negative. Calvarium / skull base: Mild posterior scalp contusion. No radiopaque foreign body or fracture. Bila teral TMJ osteoarthritis. Visualized sinuses / orbits: Mild to moderate mucosal thickening in the maxillary sinuses and ethmoi d air cells. Rightward nasal septal deviation. CERVICAL SPINE: Alignment: Mild convex leftward curvature of the cervical spine and convex rightward curvature of the cervicothoracic junction. Cranio-cervical junction: Degenerative changes in the atlantodental joint. Otherwise negative. Vertebral bodies: Normal vertebral body height. Mild degenerative endplate changes at a few levels, m ost severe at C5-C6. Posterior elements: Multilevel facet hypertrophy. Hardware: None. Disc Spaces: Multilevel degenerative disc disease, most severe at C5-C6. Soft tissues: No prevertebral soft tissue swelling. Calcified plaque in the bilateral common carotid bifurcation. Visualized upper chest: Mild to moderate centrilobular emphysema. IMPRESSION: 1. Mild posterior scalp contusion. No radiopaque foreign body or fracture. No acute intracranial abno rmality. Stable chronic changes in the brain. 2. No acute cervical spine fracture. Multilevel degenerative disc disease and facet hypertrophy. 3. Bilateral TMJ osteoarthritis. 4. Mild to moderate mucosal thickening in the maxillary sinuses and ethmoid air cells. Rightward nasa l septal deviation. 5. Mild to moderate centrilobular emphysema in the lung apices. Report Dictated By: Chao Batista MD at 11/24/2017 3:52 PM Report E-Signed By: Chao Batista MD at 11/24/2017 4:03 PM WSN:[id number]
[2017-11-24 17:30] VITALS: BP 178/102
== END 2017-11-24 17:56 | disposition home or self-care (01) ==
LOC: ER 15:02
DX: S01.01XA Laceration without foreign body of scalp, initial encounter (principal); W10.8XXA Fall (on) (from) other stairs and steps, initial encounter; I10 Essential (primary) hypertension; J44.9 Chronic obstructive pulmonary disease, unspecified; K21.9 Gastro-esophageal reflux disease without esophagitis; Z79.82 Long term (current) use of aspirin; Z79.899 Other long term (current) drug therapy
CPT/HCPCS: 70450; 72125; 81001; 82040; 82247; 82310; 82374; 82435; 82565; 82947; 84075; 84132; 84155; 84295; 84450; 84460; 84484; 84520; 85025; 85610; 85730; 93005; 99284

== ENCOUNTER → 2017-11-24 | Outpatient (CLI) | payer MEDICARE | LOC: AMB 14:42 | PROVIDERS: ATTEND Nurse Practitioner | DX: S01.01XA Laceration without foreign body of scalp, initial encounter (principal); W10.8XXA Fall (on) (from) other stairs and steps, initial encounter; Y92.89 Other specified places as the place of occurrence of the external cause | CPT/HCPCS: A0425; A0427 ==

== ENCOUNTER 2018-01-27 16:55 | Emergency (ER) | payer MEDICAID, MEDICARE ==
[~2018-01-27 16:55] MED LIST changes: -LOSA100T67 PO; +LOSA100T69 PO; -LOSA50TA72 PO; +LOSA50TA74 PO; -METF-411 PO; +METF-450 PO
--- NOTE | 2018-01-27 17:08 | ER Report ---
History and Physical Time Seen By MD: 17:08 HPI/ROS CHIEF COMPLAINT: Hypertension HISTORY OF PRESENT ILLNESS: This is an 82-year-old male who presents to the emergency department from his primary care provider's office for acute hypertension. The patient had a follow-up appointment at Dr. Bejarano's office today status post a fall approximately 1 month ago where he had multiple link placed in his head. Was noted to have very high blood pressure, diastolic 111. At this time the patient has no other complaints. No nausea or vomiting. No shari st pain or shortness of breath. No headaches. No visual changes. There is also some concern about absence seizures, and is being evaluated for this. REVIEW OF SYSTEMS: Constitutional: No fever, no chills. Eyes: No discharge. ENT: No sore throat. Cardiovascular: As above. Respiratory: No cough, no shortness of breath. Gastrointestinal: No abdominal pain, no vomiting. Genitourinary: No hematuria. Musculoskeletal: No back pain. Skin: No rashes. Neurological: As above. Allergies: Coded Allergies: No Known Drug Allergies (Unverified , 01/27/18) Home Meds Active Scripts Escitalopram Oxalate (ESCITALOPRAM OXALATE) 5 Mg Tablet, 1 TAB PO QDAY for 90 Days, #90 TAB 1 Refill Prov:PAUL BEJARANO MD 11/11/17 Losartan Potassium (LOSARTAN POTASSIUM) 100 Mg Tablet, 1 TAB PO QDAY for 90 Days, #90 TAB 3 Refills Prov:PAUL BEJARANO MD 10/14/17 Albuterol Sulfate 90 Mcg/Act (PROAIR HFA 90 MCG/ACT) 8.5 Gm Hfa.aer.ad, 2 PUFF IH Q4-6H, #1 INHALER 5 Refills Prov:PAUL BEJARANO MD 09/29/17 Umeclidinium Brm/Vilanterol Tr (Anoro Ellipta 62.5-25 Mcg INH) 1 Each Disk.w.dev, 1 INH INH DAILY, #1 INH 2 Refills Prov:LORA REAL APRN COURT OF APPEALS JUDGE-C 05/28/17 Reported Medications [Wynn Oil] Unknown Strength No Conflict Check 11/04/17 Vit A,C & E/Lutein/Minerals (OCUVITE TABLET) 1 Each Tablet, 1 TAB PO DAILY 11/04/17 Omeprazole (OMEPRAZOLE) 20 Mg Capsule.dr, 1 CAP PO PRN, CAP 11/04/17 Aspirin (ASPIR 81) 81 Mg Tablet.dr, 1 TAB PO QDAY, TAB 11/04/17 Oxygen (OXYGEN) Inha, 2-3 L INH, L 10/19/17 Past Medical/Surgical History The patient has a past medical and surgical history of cerumen impaction, dentures, macular degeneration, tonsillectomy, wears glasses, hypertension, wears oxygen at home intermittently, GERD, COPD, hernia repair, appendectomy, enlarged prostate, left arm fracture, rib fractures, pneumo thorax, type II diabetes, drinks alcohol, stents to bilateral legs, herniorrhaphy. Reviewed Nurses Notes: Yes Smoking Status: Current: Every Day Smoker Hx Alcohol Use: Yes Constitutional Vital Sign - Last 24 Hours 01/27/18 01/27/18 01/27/18 01/27/18 17:02 17:05 17:14 17:25 Temp 97.8 Pulse 78 63 Resp 12 22 B/P (MAP) 206/111 206/111 (142) 190/104 (132) Pulse Ox 92 91 O2 Delivery Room Air Room Air 01/27/18 01/27/18 01/27/18 01/27/18 17:30 17:45 17:55 18:00 Pulse 66 Resp 23 B/P (MAP) 190/121 (144) 162/87 (112) 173/84 (113) Pulse Ox 89 O2 Delivery Room Air 01/27/18 01/27/18 01/27/18 01/27/18 18:15 18:25 18:30 18:35 Pulse 66 68 68 Resp 21 19 20 B/P (MAP) 161/79 (106) 145/112 (123) 160/86 (110) Pulse Ox 87 88 87 O2 Delivery Room Air 01/27/18 01/27/18 01/27/18 01/27/18 18:40 18:45 18:49 18:50 Pulse 68 ? Resp 17 13 B/P (MAP) 188/95 (126) Pulse Ox 88 80 86 Physical Exam General Appearance: The patient is alert, has no immediate need for airway protection and no signs of toxicity. Eyes: Pupils equal and round no pallor or injection. EOMs intact, no nystagmus. ENT, Mouth: Mucous membranes are dry. Respiratory: There are no retractions, lungs are clear to auscultation. Cardiovascular: Regular rate and rhythm, no murmurs, clicks or rubs. Gastrointestinal: Abdomen is soft and non tender, no masses, bowel sounds normal. Neurological: Alert and oriented 4. Moving all extremities. Following all commands. No focal neuro deficits. Skin: Warm and dry, no rashes. Musculoskeletal: Neck is supple non tender. Extremities are nontender, nonswollen and have full range of motion. [ ] DIFFERENTIAL DIAGNOSIS: After history and physical exam differential diagnosis was considered for hypertension, TIAs, and arrhythmias. Medical Decision Making Data Points Result Diagram: 01/27/18 1737 01/27/18 1737 Laboratory Hematology Test 01/27/18 17:37 Red Blood Count 5.18 M/uL (4.00-5.60) Mean Corpuscular Volume 99.2 fL (80.0-96.0) Mean Corpuscular Hemoglobin 33.5 pg (26.0-33.0) Mean Corpuscular Hemoglobin Concent 33.8 g/dL (32.0-36.0) Red Cell Distribution Width 13.8 % (11.5-14.5) Mean Platelet Volume 8.3 fL (7.2-11.1) Neutrophils (%) (Auto) 66.4 % (39.4-72.5) Lymphocytes (%) (Auto) 20.5 % (17.6-49.6) Monocytes (%) (Auto) 10.0 % (4.1-12.4) Eosinophils (%) (Auto) 2.0 % (0.4-6.7) Basophils (%) (Auto) 1.1 % (0.3-1.4) Nucleated RBC Relative Count (auto) 0.0 /100WBC Neutrophils # (Auto) 4.0 K/uL (2.0-7.4) Lymphocytes # (Auto) 1.2 K/uL (1.3-3.6) Monocytes # (Auto) 0.6 K/uL (0.3-1.0) Eosinophils # (Auto) 0.1 K/uL (0.0-0.5) Basophils # (Auto) 0.1 K/uL (0.0-0.1) Nucleated RBC Absolute Count (auto) 0.00 K/uL Sodium Level 140 mmol/L (137-145) Potassium Level 3.7 mmol/L (3.5-5.0) Chloride Level 102 mmol/L (98-107) Carbon Dioxide Level 30 mmol/L (22-30) Blood Urea Nitrogen 30 mg/dl (9-21) Creatinine 1.20 mg/dl (0.66-1.25) Glomerular Filtration Rate Calc 58.0 Random Glucose 125 mg/dl (75-110) Calcium Level 9.4 mg/dl (8.4-10.2) Total Bilirubin 0.5 mg/dl (0.2-1.3) Aspartate Amino Transf (AST/SGOT) 21 U/L (0-35) Alanine Aminotransferase (ALT/SGPT) 31 U/L (0-56) Alkaline Phosphatase 106 U/L (0-126) Total Protein 6.5 g/dl (6.3-8.2) Albumin 3.9 g/dl (3.5-5.0) Chemistry Test 01/27/18 17:37 White Blood Count 6.1 k/uL (4.5-11.0) Red Blood Count 5.18 M/uL (4.00-5.60) Hemoglobin 17.4 g/dL (14.0-18.0) Hematocrit 51.4 % (42.0-52.0) Mean Corpuscular Volume 99.2 fL (80.0-96.0) Mean Corpuscular Hemoglobin 33.5 pg (26.0-33.0) Mean Corpuscular Hemoglobin Concent 33.8 g/dL (32.0-36.0) Red Cell Distribution Width 13.8 % (11.5-14.5) Platelet Count 144 K/uL (150-450) Mean Platelet Volume 8.3 fL (7.2-11.1) Neutrophils (%) (Auto) 66.4 % (39.4-72.5) Lymphocytes (%) (Auto) 20.5 % (17.6-49.6) Monocytes (%) (Auto) 10.0 % (4.1-12.4) Eosinophils (%) (Auto) 2.0 % (0.4-6.7) Basophils (%) (Auto) 1.1 % (0.3-1.4) Nucleated RBC Relative Count (auto) 0.0 /100WBC Neutrophils # (Auto) 4.0 K/uL (2.0-7.4) Lymphocytes # (Auto) 1.2 K/uL (1.3-3.6) Monocytes # (Auto) 0.6 K/uL (0.3-1.0) Eosinophils # (Auto) 0.1 K/uL (0.0-0.5) Basophils # (Auto) 0.1 K/uL (0.0-0.1) Nucleated RBC Absolute Count (auto) 0.00 K/uL Glomerular Filtration Rate Calc 58.0 Calcium Level 9.4 mg/dl (8.4-10.2) Total Bilirubin 0.5 mg/dl (0.2-1.3) Aspartate Amino Transf (AST/SGOT) 21 U/L (0-35) Alanine Aminotransferase (ALT/SGPT) 31 U/L (0-56) Alkaline Phosphatase 106 U/L (0-126) Total Protein 6.5 g/dl (6.3-8.2) Albumin 3.9 g/dl (3.5-5.0) EKG/Imaging EKG Interpretation 12 lead EKG: EKG 1756. Rhythm: Normal sinus rhythm, ventricular rate 64 bpm. Vernon: normal QRS: normal ST segments: No ST elevation or depression identified. ED Course/Re-evaluation ED Course The patient was admitted to room. A history and physical were obtained. Differential diagnoses were considered. An IV was started. A CBC, CMP were obtained. Lab studies unchanged from previous lab studies. Patient was given 20 mg IV labetalol, patient did have significant drop in blood pressure last blood pressure was 170s systolic. Patient continues to deny any sort of headache, nausea, vomiting, diarrhea, no fevers or chills. No shortness of breath or dyspnea. Patient states he feels fine. I did follow up with the patient's primary care provider Dr. Bejarano, she will continue to monitor the patient's hyp ertension. He was instructed to return to the ER for any other concerns or worsening symptoms. Patient expressed understanding and was discharged home with his family. Decision to Disposition Date: Jan 27, 2018 Decision to Disposition Time: 18:43 Depart Departure Latest Vital Signs Vital Signs Date Time Temp Pulse Resp B/P (MAP) Pulse Ox O2 Delivery O2 Flow Rate FiO2 10/11/18 18:50 ??? 86 01/27/18 18:49 188/95 (126) 01/27/18 18:45 13 01/27/18 18:25 Room Air 01/27/18 17:02 97.8 Impression: Primary Impression: Hypertension Condition: Improved Disposition: HOME OR SELF-CARE Referrals: PAUL BEJARANO MD (PCP) 1 Week Patient Instructions: Hypertension (ED) Additional Instructions: Be sure to take your blood pressure medication at the same time every day. Contacts Dr. Bejarano for follow-up regarding your blood pressure. Drink plenty of water. Get plenty of rest. Return to the emergency department for any other concerns or worsening symptoms. Problem Qualifiers Primary Impression: Hypertension Hypertension type: unspecified Qualified Codes: I10 - Essential (primary) hypertension AG [place] [employer] OF APPEALS JUDGE-BC Jan 27, 2018 17:08
[2018-01-27] MEDS ORDERED: LABETALOL HCL 100 MG/20ML VIAL IVP ONE (17:35)
[2018-01-27 17:44] LABS: PLATELET COUNT, AUTOMATED 144 K/uL (150-450)
--- NOTE | 2018-01-27 18:37 | EKG ---
FACILITY: [facility] [place] PATIENT NAME: MIKE CLARK : [id number] MR: [id number] V: [id number] EXAM DATE: ORDERING PHYSICIAN: AG SAMPSON TECHNOLOGIST: Test Reason : HYPERTENSION Blood Pressure : / mmHG Vent. Rate : 064 BPM Atrial Rate : 064 BPM P-R Int : 144 ms QRS Dur : 094 ms QT Int : 438 ms P-R-T Axes : 070 058 054 degrees QTc Int : 451 ms Normal sinus rhythm Normal ECG When compared with ECG of 24-NOV-2017 15:07, No significant change was found Confirmed by JOSELITO GONZALEZ ([id number]) on 01/28/2018 6:16:03 AM Referred By: Confirmed By:JOSELITO GONZALEZ
[2018-01-27 18:49] VITALS: BP 188/95
== END 2018-01-27 18:52 | disposition home or self-care (01) ==
LOC: ER 17:22
DX: I10 Essential (primary) hypertension (principal)
CPT/HCPCS: 85025; 93005; 96374; 99283; J3490; 82040; 82247; 82310; 82374; 82435; 82565; 82947; 84075; 84132; 84155; 84295; 84450; 84460; 84520

== ENCOUNTER → 2018-05-09 | Outpatient (CLI) | payer MEDICARE, MEDICAID ==
[~2018-05-09] MED LIST changes: -LOSA100T69 PO; +LOSA100T75 PO; -LOSA50TA74 PO; +LOSA50TA80 PO
== END ==
LOC: LAB 09:31
PROVIDERS: ATTEND Family Medicine
DX: E05.90 Thyrotoxicosis, unspecified without thyrotoxic crisis or storm (principal)
CPT/HCPCS: 36415; 82310; 82374; 82435; 82565; 82947; 84132; 84295; 84439; 84443; 84481; 84520

== ENCOUNTER → 2018-08-08 | Outpatient (CLI) | payer MEDICARE, MEDICAID ==
[~2018-08-08] MED LIST changes: +TAMS0.4C25 PO
[2018-08-08 10:34] LABS: PLATELET COUNT, AUTOMATED 153 K/uL (150-450)
== END ==
LOC: LAB 10:18
PROVIDERS: ATTEND Family Medicine
DX: I10 Essential (primary) hypertension (principal)
CPT/HCPCS: 36415; 82310; 82374; 82435; 82565; 82947; 84132; 84295; 84520; 85025

== ENCOUNTER → 2018-11-14 | Outpatient (CLI) | payer MEDICARE, MEDICAID ==
[~2018-11-14] MED LIST changes: -OMEP-125 PO; +OMEP-126 PO
--- NOTE | 2018-11-16 08:43 | RADIOLOGY IMAGING REPORT ---
FACILITY: [facility] - [place] PATIENT NAME: Sloan Odom : 1935 MR: [id number] V: [id number] EXAM DATE: ORDERING PHYSICIAN: ANNA MCMILLAN TECHNOLOGIST: [place] [facility] [place] O[place] : 1935 Visit/Account:[id number] Date of Sevice: 11/14/2018 Bilateral lower extremity arterial Doppler duplex ultrasound scan. HISTORY: Bilateral leg pain, left greater than right. COMPARISON: None. An arterial Doppler duplex ultrasound scan with spectral analysis was performed on the lower extremit ies. PEAK SYSTOLIC ARTERIAL VELOCITIES: Right common femoral artery: 188 cm/s. Right profunda femoris artery: 122 cm/s. Right superficial femoral artery: 182 cm/s. Right popliteal artery: 34 cm/s. Right dorsalis pedis artery: 15 cm/s. Right posterior tibial artery: 31 cm/s. Left common femoral artery: 188 cm/s. Left profunda femoris artery: 69 cm/s. Left superficial femoral artery: 106 cm/s. Left popliteal artery: 60 cm/s. Left dorsalis pedis artery: 20 cm/s. Left posterior tibial artery: 48 cm/s. Calcified plaques are scattered in the arterial systems of both lower extremities. The right superfi cial femoral artery is occluded in the mid thigh. 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 COMMENT: This study does not include segmental limb pressures, which decreases the sensitivity of the exam for occlusive arterial disease. Report Dictated By: Raj Rouse MD at 11/16/2018 8:28 AM Report E-Signed By: Raj Rouse MD at 11/16/2018 8:36 AM WSN:[id number]
== END ==
LOC: US 01:06
PROVIDERS: ATTEND Internal Medicine Cardiovascular Disease
DX: I74.3 Embolism and thrombosis of arteries of the lower extremities (principal); I73.9 Peripheral vascular disease, unspecified
CPT/HCPCS: 93925